=== PATIENT | male | born 2005 | race African-American/Black ===

== ENCOUNTER 2025-08-20 22:01 | Emergency (ER) | payer OTHER ==
[~2025-08-20] VITALS: Ht 185.4 cm; Wt 81.8 kg
[2025-08-20 23:13] LABS: BASO # 0.0 10^3/uL (0.0-0.2); BASO % 0.5 % (0.0-1.0); EOS # 0.0 10^3/uL (0.0-0.5); EOS % 0.5 % (0.0-3.0); LYMPH # 1.9 10^3/uL (1.5-5.0); LYMPH % 23.1 % (24.0-44.0); MONO # 0.6 10^3/uL (0.0-0.8); MONO % 7.4 % (2.0-8.0); NEUTROPHILS # 5.5 10^3/uL (1.5-8.5); NEUTROPHILS % 68.4 % (36.0-66.0); PLATELET COUNT, AUTOMATED 256 10^3/uL (150-450)
[2025-08-20 23:30] LABS: ALT/SGPT 58 U/L (7.0-40); AST/SGOT 37 U/L (<34); CALCIUM LEVEL 9.0 MG/DL (8.5-10.1); CARBON DIOXIDE LEVEL 25 MMOL/L (20-31); CHLORIDE LEVEL 105 MMOL/L (98-107); CREATININE FOR GFR 1.14 MG/DL (0.70-1.30); GLOMERULAR FILTRATION RATE > 90.0 (>60); POTASSIUM SERUM 3.8 MMOL/L (3.5-5.1); SODIUM LEVEL 142 MMOL/L (136-145)
[2025-08-21] MEDS: PERCOCET 5MG/325MG TAB PO ONE (04:42)
[2025-08-21 05:00] VITALS: BP 131/76
[2025-08-21] MEDS ORDERED: KETOROLAC 30 MG/ML 1 ML VIAL IV ONE (08:05)
[2025-08-21] MEDS: KETOROLAC 30 MG/ML 1 ML VIAL IM ONE (08:30)
[2025-08-21] MEDS ORDERED: PERC5TAB12 PO (10:12)
[2025-08-21 10:30] VITALS: TEMP 98.4; O2SAT 100
== END 2025-08-21 10:38 | disposition home or self-care (01) ==
LOC: M ED 22:01
DX: S30.11XA Contusion of abdominal wall, initial encounter (principal); S70.01XA Contusion of right hip, initial encounter; Y92.9 Unspecified place or not applicable; Y93.9 Activity, unspecified; Y99.9 Unspecified external cause status; V49.40XA Driver injured in collision with unspecified motor vehicles in traffic accident, initial encounter; Z79.899 Other long term (current) drug therapy
CPT/HCPCS: 73502; 73700; 74021; 74176; 80053; 83690; 85025; 96372; 99285; J1885